=== PATIENT | female | born 1950 | race Caucasian/White ===

== ENCOUNTER → 2016-08-13 | Outpatient (CLI) | payer MEDICARE ==
[~2016-08-13] MED LIST: ASPIRIN81 M1; ATIVAN0.5 MG PO; ATIVAN1 MG PO; ATORVASTATIN CA20 M1 PO; CIPRO250 MG PO; LISINOPRIL AND1 TAB PO; PRAVASTATIN SOD20 MG PO; PREDNISONE10 MG PO; PROAIR HFA8.5 GM INH; VICODIN 5/500 505 MG PO; ZITHROMAX250 MG PO
== END | disposition home or self-care (01) ==
LOC: MAMMO 07-15 13:00 → RAD 07-15 13:30
DX: Z12.31 Encounter for screening mammogram for malignant neoplasm of breast (principal); Z13.820 Encounter for screening for osteoporosis; N95.9 Unspecified menopausal and perimenopausal disorder; Z78.0 Asymptomatic menopausal state; Z87.81 Personal history of (healed) traumatic fracture

== ENCOUNTER 2016-12-21 10:30 | Inpatient (IN) | payer MEDICARE ==
[~2016-12-21] VITALS: Ht 157.4 cm; Wt 69.5 kg
[2016-12-21 10:50] VITALS: BP 138/68
[2016-12-21 10:53] LABS: BASO % 0.4 % (0.0-1.0); EOS # 0.2 10*3/uL (0.0-0.4); EOS % 2.3 % (1.0-4.0); HEMATOCRIT 45.2 % (37.0-47.0); HEMOGLOBIN 14.7 g/dl (12.0-16.0); LYMPH % 26.8 % (27.0-41.0); MEAN CELL VOLUME 89.2 fl (81.0-99.0); MEAN CORPUSCULAR HGB CONC 32.5 g/dl (33.0-37.0); MEAN PLATELET VOLUME 9.9 fl (9.6-12.3); MONO # 0.6 10*3/uL (0.1-1.0); MONO % 8.3 % (3.0-9.0); NEUT # 4.6 10*3/uL (2.3-7.9); NEUT % 62.1 % (47.0-73.0); PLATELET COUNT AUTOMATED 241 10*3/uL (130-400); RED BLOOD COUNT 5.07 10*6/uL (4.10-5.10); RED CELL DISTRI WIDTH 12.7 % (0-14.5); WHITE BLOOD COUNT 7.4 10*3/uL (4.8-10.8)
[2016-12-21 11:11] LABS: ALBUMIN 3.6 gm/dl (3.1-4.5); ALKALINE PHOSPHATASE 74 U/L (45-117); BUN 14 mg/dl (7-24); CHLORIDE 102 mmol/L (98-107); CREATININE 0.94 mg/dL (0.55-1.02); MAGNESIUM 1.9 mg/dL (1.5-2.1); POTASSIUM 3.8 mmol/L (3.5-5.1); SGOT/AST 18 IU/L (3-35); SGPT/ALT 24 U/L (12-78); SODIUM 138 mmol/L (136-145); TOTAL PROTEIN 7.4 gm/dL (6.4-8.2)
[2016-12-21 11:16] LABS: ACT PARTIAL THROMBO TIME 23.9 SECONDS (20.8-31.5)
[2016-12-21 11:19] VITALS: BP 117/54
[2016-12-21 11:29] LABS: TROPONIN I < 0.015 ng/ml (<0.045)
[2016-12-21 11:57] VITALS: BP 114/64
[2016-12-21] MEDS ORDERED: BEVESPI AEROS10.7 GM INH (12:33)
[2016-12-21] MEDS ORDERED: NEXIUM 24HR22.3 MG PO (12:34)
[2016-12-21] MEDS ORDERED: ROSUVASTATIN CA10 MG PO (12:34)
[2016-12-21] MEDS ORDERED: FISH OIL 1,0001 EAC4 PO (12:35)
[2016-12-21] MEDS ORDERED: BIOTIN1 M1 PO (12:36)
[2016-12-21] MEDS ORDERED: CALCIUM 600 +1 EAC8 PO (12:36)
[2016-12-21 16:00] VITALS: BP 113/66
[2016-12-21 20:00] VITALS: BP 123/61
[2016-12-22] VITALS: BP 107/55
[2016-12-22 06:41] LABS: BASO % 0.3 % (0.0-1.0); EOS # 0.2 10*3/uL (0.0-0.4); EOS % 2.1 % (1.0-4.0); HEMATOCRIT 42.4 % (37.0-47.0); HEMOGLOBIN 13.8 g/dl (12.0-16.0); LYMPH # 2.5 10*3/uL (1.3-4.4); LYMPH % 33.2 % (27.0-41.0); MEAN CELL VOLUME 88.1 fl (81.0-99.0); MEAN CORPUSCULAR HGB 28.7 pg (27.0-31.0); MEAN CORPUSCULAR HGB CONC 32.5 g/dl (33.0-37.0); MEAN PLATELET VOLUME 9.5 fl (9.6-12.3); MONO # 0.7 10*3/uL (0.1-1.0); MONO % 9.2 % (3.0-9.0); NEUT # 4.1 10*3/uL (2.3-7.9); NEUT % 55.1 % (47.0-73.0); PLATELET COUNT AUTOMATED 235 10*3/uL (130-400); RED BLOOD COUNT 4.81 10*6/uL (4.10-5.10); RED CELL DISTRI WIDTH 12.8 % (0-14.5); WHITE BLOOD COUNT 7.5 10*3/uL (4.8-10.8)
[2016-12-22 07:14] LABS: BUN 16 mg/dl (7-24); CHLORIDE 101 mmol/L (98-107); CHOLESTEROL 171 mg/dL (<200); CREATININE 0.82 mg/dL (0.55-1.02); HDL CHOLESTEROL 41 mg/dl (40-60); LDL CHOLESTEROL 102 mg/dL (9-159); MAGNESIUM 1.9 mg/dL (1.5-2.1); POTASSIUM 4.1 mmol/L (3.5-5.1); SODIUM 138 mmol/L (136-145); TRIGLYCERIDES 139 mg/dl (<150); VLDL CHOLESTEROL 28 mg/dL (6-40)
[2016-12-22 07:20] LABS: THYROID STIM HORMONE (HS) 0.773 uIU/ml (0.358-4.75)
[2016-12-22 08:00] VITALS: BP 125/66
[2016-12-22 08:17] LABS: VITAMIN D, 25-HYDROXY 35.3 ng/mL (30-100)
== END 2016-12-22 10:42 | disposition home or self-care (01) | DRG 880 ==
LOC: ED 10:30 → EDHOLD 11:42 → 4E 11:59
PROVIDERS: Emergency Medicine; Internal Medicine Hospice and Palliative Medicine; ADMIT Internal Medicine
DX: F41.1 Generalized anxiety disorder (principal); I11.0 Hypertensive heart disease with heart failure; R65.10 Systemic inflammatory response syndrome (SIRS) of non-infectious origin without acute organ dysfunction; I50.9 Heart failure, unspecified; J44.9 Chronic obstructive pulmonary disease, unspecified; K21.9 Gastro-esophageal reflux disease without esophagitis; R73.9 Hyperglycemia, unspecified; D72.810 Lymphocytopenia; I25.119 Atherosclerotic heart disease of native coronary artery with unspecified angina pectoris; E78.5 Hyperlipidemia, unspecified; I25.2 Old myocardial infarction; Z95.5 Presence of coronary angioplasty implant and graft; Z88.0 Allergy status to penicillin; Z79.899 Other long term (current) drug therapy; Z90.49 Acquired absence of other specified parts of digestive tract; Z98.51 Tubal ligation status; Z82.49 Family history of ischemic heart disease and other diseases of the circulatory system; Z83.79 Family history of other diseases of the digestive system; Z82.0 Family history of epilepsy and other diseases of the nervous system; Z87.891 Personal history of nicotine dependence; Z79.82 Long term (current) use of aspirin

== ENCOUNTER → 2017-11-19 | Outpatient (CLI) | payer MEDICARE ==
[~2017-11-19] MED LIST changes: +BEVESPI AEROS10.7 GM INH; +BIOTIN1 M1 PO; +CALCIUM 600 +1 EAC8 PO; +FISH OIL 1,0001 EAC4 PO; +NEXIUM 24HR22.3 MG PO; +ROSUVASTATIN CA10 MG PO; +Ventolin 02.5 MG/3 M INH; +ZESTORETIC 10-1 EACH PO
== END | disposition home or self-care (01) ==
LOC: MAMMO 13:26
DX: Z12.31 Encounter for screening mammogram for malignant neoplasm of breast (principal); Z13.29 Encounter for screening for other suspected endocrine disorder; Z13.9 Encounter for screening, unspecified

== ENCOUNTER → 2017-11-28 | Day surgery (SDC) | payer MEDICARE ==
--- NOTE | ~2017-11-28 | O ---
[place], [place] OPERATIVE NOTE NAME: KEYLA STAFFORD UNIT #: [id number] ROOM: DOCTOR: VINCENZO DOBBS MD BIRTHDATE: [birth year] DOS: 11/28/2017 HISTORY OF PRESENT ILLNESS: The patient is a 67-year-old patient who presented with chief complaint of heartburn, dyspepsia, epigastric distress, bloating, gassy distention, has been declared to be having noncardiac chest pain, has been already evaluated. ALLERGIES: PENICILLIN. FAMILY HISTORY: Noncontributory. PAST SURGICAL HISTORY: Cardiac catheterization, cholecystectomy and stent, appendectomy. PAST MEDICAL HISTORY: Hypertension, hyperlipidemia, COPD, and coronary artery disease. PROCEDURE: Today's procedure part of investigation is panendoscopy and colonoscopy. PREMEDICATION: Propofol. SCOPE: Olympus forward-viewing gastroscope Q10 video. REPORT: After putting the patient in the left lateral position and application of lubricant to the scope, the scope was introduced. Thereafter, under direct visualization, advanced through the length of esophagus without difficulty. Small hiatal hernia 2 cm was noticed. Gastric pouch was entered. Gastritis noticed. Antrum shows multiple small antral linear ulcerations. Biopsy from margin of one was done. Duodenal bulb, second and third part within normal limits. The patient was extubated, tolerated the procedure well. IMPRESSION: 1. Multiple small linear antral ulcerations, which appears to be aspirin-induced. 2. Small hiatal hernia, 2 cm. PLAN AND DISCUSSION: 1. The patient was advised to consider intake of Nexium 40 mg daily, that she has a supply available. 2. I am going to proceed with colonoscopy for abdominal pain symptomatology. Thank you very much indeed. INDICATIONS: The patient has presented 67-year-old with a chief complaint of abdominal pain, bloating, change in bowel habits. PROCEDURE: Today's procedure part of investigation is colonoscopy plus [place], [place] OPERATIVE NOTE NAME: KEYLA STAFFORD UNIT #: [id number] ROOM: DOCTOR: VINCENZO DOBBS MD BIRTHDATE: [birth year] piecemeal polypectomy. PREMEDICATION: Propofol. SCOPE: Olympus forward-viewing colonoscope 10L video. REPORT: After putting the patient in left lateral position and application of lubricant to the scope, the scope was introduced. Thereafter, under direct visualization, I advanced through the length of colon without difficulty. Base of the cecum explored, appendiceal orifice identified, ileocecal valve was defined. Scope was gradually withdrawn from ascending, transverse, descending colon. Sessile ____ polyp with piecemeal polypectomy, cold biopsy was removed. Diverticulosis of sigmoid colon appreciated. Otherwise, entire length of colon was inspected. No other pathology seen. The patient extubated, tolerated the procedure well. IMPRESSION: Diverticulosis, sessile colonic polyp, status post piecemeal polypectomy. Most likely, the lower abdominal pain that she is experiencing is secondary to her diverticulosis. PLAN AND DISCUSSION: High fiber diet. ACTIVITY: Ad fuentes. FOLLOWUP: Routinely with you in office, p.r.n. visit with us in [facility]. Thank you very much indeed for your kind referral. VINCENZO DOBBS MD CM:OPRECORD:OPERATIVE NOTE [id number] VINCENZO DOBBS MD 11/28/17 1227 interface
[2017-11-28 10:23] VITALS: BP 123/57
[2017-11-28 11:36] VITALS: BP 108/52
[2017-11-28 11:51] VITALS: BP 91/45
[2017-11-28 12:03] VITALS: BP 102/45
== END | disposition home or self-care (01) ==
LOC: SDC 11-27 10:15
DX: K62.1 Rectal polyp (principal); K57.30 Diverticulosis of large intestine without perforation or abscess without bleeding; K29.50 Unspecified chronic gastritis without bleeding; K25.9 Gastric ulcer, unspecified as acute or chronic, without hemorrhage or perforation; K44.9 Diaphragmatic hernia without obstruction or gangrene; I10 Essential (primary) hypertension; I25.10 Atherosclerotic heart disease of native coronary artery without angina pectoris; I25.2 Old myocardial infarction; E78.5 Hyperlipidemia, unspecified; J44.9 Chronic obstructive pulmonary disease, unspecified; Z98.890 Other specified postprocedural states; Z90.49 Acquired absence of other specified parts of digestive tract; Z87.891 Personal history of nicotine dependence

== ENCOUNTER 2020-08-29 05:19 | Emergency (ER) | payer MEDICARE ==
[~2020-08-29] VITALS: Ht 157.4 cm; Wt 67.1 kg
== END 2020-08-29 05:40 | disposition home or self-care (01) ==
LOC: ED 05:19
DX: R21 Rash and other nonspecific skin eruption (principal); M79.602 Pain in left arm; M79.89 Other specified soft tissue disorders; T50.B95A Adverse effect of other viral vaccines, initial encounter; Z88.0 Allergy status to penicillin; Z79.899 Other long term (current) drug therapy; Z90.49 Acquired absence of other specified parts of digestive tract; Z95.818 Presence of other cardiac implants and grafts; Z98.51 Tubal ligation status; Z98.890 Other specified postprocedural states; Y92.89 Other specified places as the place of occurrence of the external cause

== ENCOUNTER → 2020-10-02 | Outpatient (CLI) | payer MEDICARE ==
[2020-10-02 13:06] LABS: BUN 12 mg/dl (7-24); CHLORIDE 105 mmol/L (98-107); CHOLESTEROL 167 mg/dL (<200); CREATININE 0.99 mg/dL (0.55-1.02); POTASSIUM 4.2 mmol/L (3.5-5.1); SODIUM 136 mmol/L (136-145); TRIGLYCERIDES 102 mg/dl (<150)
[2020-10-02 13:08] LABS: LDL CHOLESTEROL 107 mg/dL (9-159)
== END | disposition home or self-care (01) ==
LOC: LAB 12:03
PROVIDERS: ATTEND Family Medicine
DX: I10 Essential (primary) hypertension (principal); E78.2 Mixed hyperlipidemia

== ENCOUNTER → 2021-01-04 | Outpatient (CLI) | payer MEDICARE | END | disposition home or self-care (01) | LOC: MAMMO 10:49 | PROVIDERS: ATTEND Family Medicine | DX: Z12.31 Encounter for screening mammogram for malignant neoplasm of breast (principal) ==

== ENCOUNTER 2022-02-24 12:20 | Emergency (ER) | payer MEDICARE ==
[~2022-02-24] VITALS: Ht 154.9 cm; Wt 65.3 kg
[2022-02-24] MEDS ORDERED: PREDNISONE20 M1 PO (14:23)
[2022-02-24] MEDS ORDERED: VIBRAMYCIN100 MG PO (14:23)
== END 2022-02-24 14:24 | disposition home or self-care (01) ==
LOC: ED 12:20
DX: J44.1 Chronic obstructive pulmonary disease with (acute) exacerbation (principal); Z88.0 Allergy status to penicillin; Z87.09 Personal history of other diseases of the respiratory system; Z90.49 Acquired absence of other specified parts of digestive tract; Z98.51 Tubal ligation status; Z87.891 Personal history of nicotine dependence; Z20.822 Contact with and (suspected) exposure to COVID-19

== ENCOUNTER → 2022-08-12 | Outpatient (CLI) | payer MEDICARE ==
[~2022-08-12] MED LIST changes: +PREDNISONE20 M1 PO; +VIBRAMYCIN100 MG PO
[2022-08-12 12:07] LABS: POTASSIUM 4.5 mmol/L (3.4-5.1)
== END | disposition home or self-care (01) ==
LOC: LAB 11:07
PROVIDERS: ATTEND Family Medicine
DX: I10 Essential (primary) hypertension (principal); E78.2 Mixed hyperlipidemia

== ENCOUNTER 2023-02-23 10:49 | Emergency (ER) | payer MEDICARE ==
[~2023-02-23] VITALS: Ht 157.4 cm; Wt 63.0 kg
[2023-02-23] MEDS ORDERED: PROVENTIL HFA6.7 GM INH (11:39)
[2023-02-23] MEDS ORDERED: ESOMEPRAZOLE MA40 M1 PO (11:40)
[2023-02-23] MEDS ORDERED: BREYNA 160-4.10.3 GM INH (11:41)
[2023-02-23 11:53] LABS: BASO % 0.5 % (0.0-1.0); EOS % 0.5 % (1.0-4.0); HEMATOCRIT 45.9 % (37.0-47.0); LYMPH # 1.2 10*3/uL (1.3-4.4); LYMPH % 20.3 % (27.0-41.0); MEAN CELL VOLUME 89.1 fl (81.0-99.0); MEAN CORPUSCULAR HGB 28.9 pg (27.0-31.0); MEAN CORPUSCULAR HGB CONC 32.5 g/dl (33.0-37.0); MEAN PLATELET VOLUME 9.2 fl (9.6-12.3); MONO # 0.8 10*3/uL (0.1-1.0); MONO % 13.2 % (3.0-9.0); NEUT % 65.3 % (47.0-73.0); PLATELET COUNT AUTOMATED 235 10*3/uL (130-400); RED BLOOD COUNT 5.15 10*6/uL (4.10-5.10); RED CELL DISTRI WIDTH 12.3 % (0-14.5); WHITE BLOOD COUNT 6.1 10*3/uL (4.8-10.8)
[2023-02-23 12:09] LABS: ALKALINE PHOSPHATASE 74 U/L (46-116); CHLORIDE 100 mmol/L (98-107); POTASSIUM 3.5 mmol/L (3.4-5.1); SGPT/ALT 9 U/L (5-49); TOTAL PROTEIN 6.9 gm/dL (6.0-8.0)
[2023-02-23 12:11] LABS: BUN < 5 mg/dl (9-23)
[2023-02-23] MEDS ORDERED: BENZONATATE100 M1 PO (12:12)
== END 2023-02-23 12:19 | disposition home or self-care (01) ==
LOC: ED 10:49
PROVIDERS: Nurse Practitioner Family
DX: R05.9 Cough, unspecified (principal); B97.4 Respiratory syncytial virus as the cause of diseases classified elsewhere; J44.9 Chronic obstructive pulmonary disease, unspecified; I25.2 Old myocardial infarction; Z88.0 Allergy status to penicillin; Z90.49 Acquired absence of other specified parts of digestive tract; Z98.51 Tubal ligation status; Z95.5 Presence of coronary angioplasty implant and graft; Z98.890 Other specified postprocedural states; Z87.891 Personal history of nicotine dependence; Z20.822 Contact with and (suspected) exposure to COVID-19

== ENCOUNTER → 2023-12-15 | Outpatient (CLI) | payer OTHER ==
[~2023-12-15] MED LIST changes: +BENZONATATE100 M1 PO; +BREYNA 160-4.10.3 GM INH; +ESOMEPRAZOLE MA40 M1 PO; +PROVENTIL HFA6.7 GM INH; +Regadenoson 0.4 MG/5 ML SYR IV ONE; +Technetium Tc 99M Tetrofosmi 0.23 MG KIT IJ SCH
== END | disposition home or self-care (01) ==
LOC: CARD 00:53
PROVIDERS: ATTEND Internal Medicine Cardiovascular Disease
DX: I25.10 Atherosclerotic heart disease of native coronary artery without angina pectoris (principal)

== ENCOUNTER 2024-04-08 05:46 | Emergency (ER) | payer MEDICARE ==
[~2024-04-08] VITALS: Ht 157.4 cm; Wt 68.0 kg
[~2024-04-08 05:46] MED LIST changes: -Regadenoson 0.4 MG/5 ML SYR IV ONE; -Technetium Tc 99M Tetrofosmi 0.23 MG KIT IJ SCH
[2024-04-08] MEDS ORDERED: PHARMASSURE V500 MCG PO (06:05)
[2024-04-08] MEDS ORDERED: Dicyclomine Hydrochloride 20 MG/10 ML OSYR PO STA (06:21)
[2024-04-08] MEDS ORDERED: Lidocaine Hydrochloride 15 ML UDC PO STA (06:21)
[2024-04-08] MEDS ORDERED: MG-AL HYDROXIDE/SIMETICONE 30 ML UDC PO STA (06:21)
[2024-04-08 06:47] LABS: BASO % 0.2 % (0.0-1.0); EOS # 0.1 10*3/uL (0.0-0.4); EOS % 1.3 % (1.0-4.0); MEAN CELL VOLUME 90.3 fl (81.0-99.0); MEAN CORPUSCULAR HGB 28.8 pg (27.0-31.0); MEAN CORPUSCULAR HGB CONC 31.9 g/dl (33.0-37.0); MEAN PLATELET VOLUME 9.5 fl (9.6-12.3); MONO # 0.8 10*3/uL (0.1-1.0); MONO % 9.3 % (3.0-9.0); NEUT # 5.8 10*3/uL (2.3-7.9); NEUT % 68.3 % (47.0-73.0); PLATELET COUNT AUTOMATED 236 10*3/uL (130-400); RED BLOOD COUNT 4.76 10*6/uL (4.10-5.10); RED CELL DISTRI WIDTH 12.3 % (0-14.5); WHITE BLOOD COUNT 8.5 10*3/uL (4.8-10.8)
[2024-04-08 07:07] LABS: BUN 17 mg/dl (9-23); CHLORIDE 101 mmol/L (98-107); POTASSIUM 3.6 mmol/L (3.4-5.1)
== END 2024-04-08 07:32 | disposition home or self-care (01) ==
LOC: ED 05:46
PROVIDERS: Internal Medicine
DX: F41.1 Generalized anxiety disorder (principal); K21.9 Gastro-esophageal reflux disease without esophagitis; I10 Essential (primary) hypertension; E78.5 Hyperlipidemia, unspecified; Z88.0 Allergy status to penicillin; Z79.899 Other long term (current) drug therapy; Z79.82 Long term (current) use of aspirin; Z90.49 Acquired absence of other specified parts of digestive tract; Z95.5 Presence of coronary angioplasty implant and graft; Z87.891 Personal history of nicotine dependence

== ENCOUNTER 2024-06-10 10:51 | Emergency (ER) | payer MEDICARE ==
[~2024-06-10] VITALS: Wt 59.9 kg
[~2024-06-10 10:51] MED LIST changes: +PHARMASSURE V500 MCG PO
[2024-06-10] MEDS ORDERED: methylPREDNISolone sod succ 125 MG VIAL IM ONE (11:10)
[2024-06-10] MEDS ORDERED: PREDNISONE50 MG PO (12:30)
[2024-06-10] MEDS ORDERED: AVPAK AZITHROM250 M1 PO (12:30)
== END 2024-06-10 12:01 | disposition home or self-care (01) ==
LOC: ED 10:51
DX: J44.1 Chronic obstructive pulmonary disease with (acute) exacerbation (principal); I25.10 Atherosclerotic heart disease of native coronary artery without angina pectoris; I11.0 Hypertensive heart disease with heart failure; I50.9 Heart failure, unspecified; I25.2 Old myocardial infarction; K21.9 Gastro-esophageal reflux disease without esophagitis; Z20.822 Contact with and (suspected) exposure to COVID-19; Z88.0 Allergy status to penicillin; Z79.899 Other long term (current) drug therapy; Z79.82 Long term (current) use of aspirin; Z90.49 Acquired absence of other specified parts of digestive tract; Z98.51 Tubal ligation status; Z95.5 Presence of coronary angioplasty implant and graft; Z87.891 Personal history of nicotine dependence

== ENCOUNTER → 2024-07-30 | Outpatient (CLI) | payer MEDICARE ==
[~2024-07-30] MED LIST changes: +AVPAK AZITHROM250 M1 PO; +PREDNISONE50 MG PO
== END | disposition home or self-care (01) ==
LOC: RAD 12:58
PROVIDERS: ATTEND Family Medicine
DX: M81.0 Age-related osteoporosis without current pathological fracture (principal); E55.9 Vitamin D deficiency, unspecified; M85.80 Other specified disorders of bone density and structure, unspecified site; Z78.0 Asymptomatic menopausal state

== ENCOUNTER → 2024-08-06 | Outpatient (CLI) | payer MEDICARE | END | disposition home or self-care (01) | LOC: CT 01:50 | PROVIDERS: ATTEND Family Medicine | DX: Z12.2 Encounter for screening for malignant neoplasm of respiratory organs (principal); I25.10 Atherosclerotic heart disease of native coronary artery without angina pectoris; J43.9 Emphysema, unspecified; F17.210 Nicotine dependence, cigarettes, uncomplicated ==